=== PATIENT | male | born 1970 | race Two or more races ===

== ENCOUNTER → 2017-12-23 | Outpatient (CLI) | payer BC ==
--- NOTE | 2017-12-23 09:52 | EKG ---
FACILITY: [facility] - [place] PATIENT NAME: DIONICIO HANCOCK : [id number] MR: [id number] V: [id number] EXAM DATE: ORDERING PHYSICIAN: ANUN COULTER TECHNOLOGIST: KENRICK Camilo Reason : CP Blood Pressure : / mmHG Vent. Rate : 061 BPM Atrial Rate : 061 BPM P-R Int : 154 ms QRS Dur : 106 ms QT Int : 434 ms P-R-T Axes : 040 070 027 degrees QTc Int : 436 ms Normal sinus rhythm Normal ECG No previous ECGs available Confirmed by CURT URRUTIA ([id number]) on 12/23/2017 6:08:06 PM Referred By: MARYLIN Confirmed By:CURT URRUTIA
== END ==
LOC: RESP 09:40
PROVIDERS: ATTEND Family Medicine
DX: R07.9 Chest pain, unspecified (principal)
CPT/HCPCS: 93005

== ENCOUNTER → 2018-05-02 | Outpatient (CLI) | payer BC ==
--- NOTE | 2018-05-02 16:16 | RADIOLOGY IMAGING REPORT ---
[place] [facility] [place] NAME: Manny Anthony : 1970 MR: [id number] V: [id number] EXAM DATE: ORDERING PHYSICIAN: RAINE CHAVEZ TECHNOLOGIST: Location: [facility] Patient: Manny Anthony : 1970 Visit/Account:[id number] Date of Sevice: 05/02/2018 EXAMINATION: Single Isotope SPECT Imaging with Exercise and Gated SPECT Imaging DATE OF EXAMINATION: 05/02/2018 DATE OF INTERPRETATION: 05/02/2018 REQUESTING PHYSICIAN: RAINE CHAVEZ INDICATION: The patient is a 48-year-old male evaluated for chest pain. PROCEDURE: After informed consent the patient received an intravenous injection of 13.1 mCi of Tc-9 9m sestamibi followed at the appropriate time interval by rest imaging. The patient then exercised a ccording to the standard [place] protocol for 11 minutes achieving 12 METS. Resting heart rate was 70 bpm with a peak heart rate of 155 bpm which is 90 % of maximal predicted heart rate for age. Blood pressure at rest was 122 / 94; blood pressure during exercise was 198 / 105. There was no chest pain during exercise. Exercise was discontinued because of fatigue. Baseline EKG demonstrates normal si nus rhythm with inverted T waves in the inferior leads. There were no new EKG changes of ischemia at peak exercise. Approximately one minute and 30 seconds prior to the termination of exercise, the pa tient received an intravenous injection of 31.0 mCi of Tc-99m sestamibi followed by stress imaging. RAW DATA: Examination of the summed raw data revealed a excellent quality study. MYOCARDIAL PERFUSION: The tomographic images demonstrate normal perfusion with no evidence of infarc t or ischemia. GATED IMAGES: The gated images demonstrate normal wall motion, ejection fraction 71% IMPRESSION: 1. Excellent quality study. 2. Normal myocardial perfusion scan. 3. Normal LV systolic function; LVEF 71%. 4. Based on the results of this exam, the patient appears to be at low risk for future cardiovascular events. Report Dictated By: Wale Almaguer at 05/02/2018 4:07 PM Report E-Signed By: Wale Almaguer at 05/02/2018 4:12 PM WSN:[id number]
--- NOTE | 2018-05-02 23:03 | RT STRESS TEST REPORT ---
FACILITY: [facility] PATIENT NAME: DIONICIO HANCOCK : [id number] MR: [id number] V: [id number] EXAM DATE: ORDERING PHYSICIAN: RAINE CHAVEZ TECHNOLOGIST: Mavis Acquisition Time: 2018-05-02 14:41:17 Total Exercise Time: 00:11:00 Test Indications: Chest Discomfort Medications: see nuclear med sheet Protocol: NAOMIE 2 Max HR: 155 BPM 90% of Pred: 171 BPM Max BP: 198/105 mmHG Max Work Load: 13.4 METS Patient achieved target heart rate during stress test. patient remained asymptomatic throughtout the test. Blood pressure was elevated but safe, BP cuff failed at higher load to get accurate readings and stud y was terminated by provider after 3 failed BP readings above target heart rate. No EKG changes or arrythmias were present to indicate ischemia. Above average functional capacity. Negative EKG portion of treadmill nuclear imaging. Await radiology interpretation of imagin portion. Confirmed by Jose Lauren ([id number]) on 05/02/2018 11:03:28 PM Referred By: Overread By: Jose Wallace
== END ==
LOC: NUC 02:12
PROVIDERS: ATTEND Internal Medicine Cardiovascular Disease
DX: R07.2 Precordial pain (principal)
CPT/HCPCS: 78452; 93017; A9500